=== PATIENT | female | born 1965 | race Caucasian/White ===

== ENCOUNTER 2021-03-26 09:02 | Emergency (ER) | payer OTHER ==
[~2021-03-26 09:02] MED LIST: CEFDINIR300 MG PO; DICLOFENAC POTA50 MG PO; KEFLEX CAP 500500 MG PO; PRILOSEC OTC20 MG PO; ZOFRAN ODT4 MG PO
[2021-03-26 09:49] LABS: HEMOGLOBIN 12.7 gm/dl (12.3-15.3); RED BLOOD COUNT 4.72 M/UL (4.00-5.10)
[2021-03-26 10:20] LABS: BUN/CREATININE RATIO 18 (0-10)
== END 2021-03-26 12:26 | disposition home or self-care (01) ==
LOC: ER1 09:02
PROVIDERS: Student in an Organized Health Care Education/Training Program
DX: R19.7 Diarrhea, unspecified (principal); K21.9 Gastro-esophageal reflux disease without esophagitis; E11.9 Type 2 diabetes mellitus without complications; I10 Essential (primary) hypertension; F17.210 Nicotine dependence, cigarettes, uncomplicated
CPT/HCPCS: 80053; 85025; 86850; 86900; 86901; 99284; Q9967

== ENCOUNTER 2021-04-25 19:23 | Emergency (ER) | payer OTHER ==
[2021-04-25 20:08] LABS: RED BLOOD COUNT 4.83 M/UL (4.00-5.10); WHITE BLOOD COUNT 10.5 K/UL (4.5-11.0)
[2021-04-25 20:32] LABS: BUN/CREATININE RATIO 21 (0-10)
== END 2021-04-25 21:59 | disposition home or self-care (01) ==
LOC: ER1 19:23
PROVIDERS: Nurse Practitioner
DX: R07.89 Other chest pain (principal); E87.6 Hypokalemia; R20.2 Paresthesia of skin; E66.9 Obesity, unspecified; E11.9 Type 2 diabetes mellitus without complications; F17.210 Nicotine dependence, cigarettes, uncomplicated; Z79.82 Long term (current) use of aspirin
CPT/HCPCS: 71045; 80048; 82550; 82553; 83874; 84484; 85025; 93005; 96374; 99285; C9113

== ENCOUNTER 2021-06-17 21:30 | Emergency (ER) | payer OTHER | END 2021-06-17 23:08 | disposition left against medical advice (07) | LOC: ER1 21:30 | DX: Z00.01 Encounter for general adult medical examination with abnormal findings (principal) | CPT/HCPCS: 93005; 99281 ==

== ENCOUNTER 2021-10-09 13:32 | Inpatient (IN) | payer OTHER ==
[~2021-10-09] VITALS: Ht 165.1 cm; Wt 127.0 kg
[~2021-10-09 13:32] MED LIST changes: +ASPIRIN CHEWABL81 MG PO; +CETIRIZINE HCL10 MG PO; +DULOXETINE HCL30 MG PO; +EUTHYROX100 MCG PO; +HYDROCHLOROTH12.5 MG PO; +HYDROXYZINE HCL25 MG PO; +INDERAL TAB 1010 MG PO; +KEFLEX CAP 250250 MG PO; +MACROBID 100 M100 MG PO; +NOVOLOG FL100 UNIT/1 SQ; +PHENAZOPYRIDIN200 MG PO; +PROTONIX 40 MG40 M1 PO; +TOUJEO MAX300 UNIT/1 SQ; +TRULICITY1.5 MG/0.5 SQ; +VITAMIN D21250 MCG PO
[2021-10-09 15:01] LABS: HEMOGLOBIN 12.7 gm/dl (12.3-15.3); RED BLOOD COUNT 4.84 M/UL (4.00-5.10); WHITE BLOOD COUNT 9.6 K/UL (4.5-11.0)
[2021-10-09 15:24] LABS: BUN/CREATININE RATIO 21 (0-10)
[2021-10-10 01:53] LABS: WHITE BLOOD COUNT 7.7 K/UL (4.5-11.0)
[2021-10-10 01:54] LABS: HEMOGLOBIN 10.7 gm/dl (12.3-15.3); RED BLOOD COUNT 4.08 M/UL (4.00-5.10)
[2021-10-10] MEDS ORDERED: HYDROCHLOROTHIA25 MG PO (10:40)
[2021-10-11 03:09] LABS: RED BLOOD COUNT 3.9 M/UL (4.00-5.10)
[2021-10-11 03:11] LABS: WHITE BLOOD COUNT 5.3 K/UL (4.5-11.0)
[2021-10-11] MEDS ORDERED: AMOX TR-K CLV1 EAC4 PO (14:06)
[2021-10-12 02:56] LABS: HEMOGLOBIN 9.9 gm/dl (12.3-15.3); RED BLOOD COUNT 3.77 M/UL (4.00-5.10); WHITE BLOOD COUNT 6.1 K/UL (4.5-11.0)
[2021-10-12] MEDS ORDERED: QDOLO5 MG/1 ML PO (12:32)
== END 2021-10-12 13:37 | disposition home or self-care (01) | DRG 872 ==
LOC: ER1 13:32 → M/S 22:42 → CDU 22:42 → M/S 10-10 00:08
PROVIDERS: Internal Medicine; Physician Assistant; ADMIT Internal Medicine
DX: A41.9 Sepsis, unspecified organism (principal); N12 Tubulo-interstitial nephritis, not specified as acute or chronic; Z68.42 Body mass index [BMI] 45.0-49.9, adult; E87.2 Acidosis; E66.01 Morbid (severe) obesity due to excess calories; E11.9 Type 2 diabetes mellitus without complications; E78.5 Hyperlipidemia, unspecified; I10 Essential (primary) hypertension; F17.200 Nicotine dependence, unspecified, uncomplicated; E03.9 Hypothyroidism, unspecified; K21.9 Gastro-esophageal reflux disease without esophagitis; J30.9 Allergic rhinitis, unspecified; E87.6 Hypokalemia; R74.01 Elevation of levels of liver transaminase levels; I88.0 Nonspecific mesenteric lymphadenitis; R30.0 Dysuria; Z87.440 Personal history of urinary (tract) infections; Z95.5 Presence of coronary angioplasty implant and graft; Z82.49 Family history of ischemic heart disease and other diseases of the circulatory system; Z83.3 Family history of diabetes mellitus; Z88.8 Allergy status to other drugs, medicaments and biological substances; Z79.4 Long term (current) use of insulin; Z79.899 Other long term (current) drug therapy; Z71.6 Tobacco abuse counseling
CPT/HCPCS: 0240U; 36415; 71045; 80048; 80053; 81001; 82962; 83605; 85025; 87040; 87086; 96374; 96375; 96376; 99285; G0378; J0696; J1650; J1885; J2270; J2405; J2543; J7030; Q9967

== ENCOUNTER 2022-01-06 12:50 | Emergency (ER) | payer OTHER ==
[~2022-01-06 12:50] MED LIST changes: +AMOX TR-K CLV1 EAC4 PO; +HYDROCHLOROTHIA25 MG PO; +QDOLO5 MG/1 ML PO
[2022-01-06 14:03] LABS: HEMOGLOBIN 11.9 gm/dl (12.3-15.3); RED BLOOD COUNT 4.46 M/UL (4.00-5.10); WHITE BLOOD COUNT 10.1 K/UL (4.5-11.0)
[2022-01-06 14:37] LABS: BUN/CREATININE RATIO 17 (0-10)
== END 2022-01-06 15:51 | disposition home or self-care (01) ==
LOC: ER1 12:50
PROVIDERS: Physician Assistant
DX: R07.9 Chest pain, unspecified (principal); R00.2 Palpitations; F17.210 Nicotine dependence, cigarettes, uncomplicated; Z88.1 Allergy status to other antibiotic agents; Z79.82 Long term (current) use of aspirin
CPT/HCPCS: 71045; 80053; 82550; 82553; 83880; 84484; 85025; 93005; 93242; 99285

== ENCOUNTER 2022-01-17 03:41 | Emergency (ER) | payer OTHER ==
[2022-01-17 04:42] LABS: HEMOGLOBIN 11.6 gm/dl (12.3-15.3); RED BLOOD COUNT 4.43 M/UL (4.00-5.10); WHITE BLOOD COUNT 8.3 K/UL (4.5-11.0)
[2022-01-17 05:34] LABS: BUN/CREATININE RATIO 17 (0-10)
== END 2022-01-17 09:42 | disposition home or self-care (01) ==
LOC: ER1 03:41
DX: R00.2 Palpitations (principal); R07.89 Other chest pain; R10.9 Unspecified abdominal pain; R10.816 Epigastric abdominal tenderness; E11.9 Type 2 diabetes mellitus without complications; I10 Essential (primary) hypertension; F17.210 Nicotine dependence, cigarettes, uncomplicated; Z88.1 Allergy status to other antibiotic agents
CPT/HCPCS: 71045; 80053; 82550; 82553; 83690; 84484; 85025; 85379; 93005; 93270; 99285